=== PATIENT | male | born 1950 | race Caucasian/White ===

== ENCOUNTER 2023-09-17 10:30 | Outpatient (RCR) | payer MEDICARE, SELFPAY ==
--- NOTE | 2023-09-12 16:13 | PT.OPE ---
[facility] PT [facility] Out[facility] Eval Start: 09/12/23 16:07 Freq: Status: Active Protocol: Document 09/12/23 16:07 LISAEmma (Rec: 09/12/23 16:10 REYNA [id number]) E-signed By Eris Carrillo DPT, MS Physical Therapy Outpatient Evaluation Insurance Information Recert Due Date 12/11/23 Insurance Name Medicare B,Other; See Comments Insurance Information/Comments AARP Medical Diagnosis Pain in left knee, other chronic pain; other specified postprocedural states; cervicalgia; arthrodesis status Treating Diagnosis L knee and CS pain, decreased L LE flexibility, B (L>R) LE weakness, gait dysfunction, and imbalance Subjective Subjective Pt is a 73-year-old male who presents to PT with c/o chronic L knee and B CS pain over the past 4-5 years with gradual increase in sxs. Pt had a significant L knee hyperextension injury 20+ years ago with reconstruction surgery to all 4 ligaments. Previous MRI found his L PCL did not heal and he has tricompartmental L knee OA. An orthopedic surgeon previously recommended a TKA but he hopes to put this off, especially since he is leaving in 1.5 weeks to stay with his son in [place] for the winter. Describes sxs as sharp aching pain behind his patella with occasional sxs in his medial knee. Chronic hx of CS pain with previous C6-7 and C5-6 fusions along with episodic tension and cluster HAs. Denies radicular sxs but experiences high levels of B CS tension with HAs. Stays active everyday walking around his property performing house and yardwork with elevated knee pain after walking >3-4 minutes. 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 PMH includes L knee, LS and CS OA, polio at 2 y.o. with permanent weakness in his R calf. AGGR factors: walking , standing, stair climbing ( down>up), driving, turning neck, carrying objects, squatting, kneeling. ALLEV factors: ibuprofen, warm shower. Pt hopes to learn exercises to decreased L knee and CS pain before he leaves for the winter. Pain Comments 04/21 Current Work Status Integration Solution Architect,Residential Disability Preferred Name Dominick Precautions Therapy Limitations/Systems Review Not Limited Objective Functional Test Performed & Score LEFS: 16 Assessment Assessment/Impression Objectively pt displays decreased B (L>R) LE and CS ROM and flexibility, B LE and UE weakness, gait dysfunction, and imbalance. Significant L quad and glute weakness, L hamstring and quad tightness, combined with SLS impairments appear to be contributing to L knee sxs. B CS musculature is very tight, especially B UT and SO. Pt responded well to recumbent biking, stretching, and UE and LE strengthening exercises with fatigue and decreased L knee and neck pain following today?s session. He will benefit from continued skilled therapy to address these limitations. Primary Functional Limitations Due to chronic nature of sxs, and L knee and CS degenerative changes Plan of Care Rehabilitation Potential Good Rehabilitation Potential Comments Walking, standing, stair climbing (down>up), driving, turning neck, carrying objects , squatting, kneeling Physical Therapy Goals Short-term goals to be completed in 4 weeks: 1.Pt will display improved L LE strength as evidenced by performing >10 SLR of good quality to improve quality of gait 2. Pt will report improved quality of sleep waking <2x per night due to L knee and CS pain. Long-term goals to be completed in 10 weeks: 1.Pt will be independent and compliant with her HEP for senior care sx management 2.Pt will display improved B hip flex, ABD and ext strength of >/= 4/5 to improve tolerance to walking and daily activities. 3. Pt will display improved B CS rot AROM >65 deg to improve safety with driving. 4.Pt will report >50% improvement in LEFS questionnaire to significantly improve baldomero to daily activities. 5. Pt will be able to walk >15 minutes with no elevation in L knee pain to improve cardiovascular health and tolerance to work activities. Coordination/Communication With Referral Source Treatment Plan/Direct Interventions Joint Mobilization,Manual Therapy,Neuromuscular Re-ed, Therapeutic Exercises Frequency/Duration 1x per week for 6-10 visits Patient Will Be Discharged From Therapy Completion of LTG(s),Skills Plateau,Independent w/HEP, Independently Progressing Evaluation Billing Untimed Code Treatment Minutes 26 Complexity Moderate Certification Information Initial Certification Date 09/12/23 Ending Certification Date 12/11/23 Provider Signature Shows Agreement With POC & Medical Necessity Physician Signature & Date Requested Please Sign/Date Here Physician Comment/Change : Physician NPI Number #
== END 2023-11-26 10:58 | disposition home or self-care (01) ==
PROVIDERS: PCP Family Medicine; Visit Provider Family Medicine
DX: G89.29 Other chronic pain (principal); M25.562 Pain in left knee; M54.2 Cervicalgia; Z98.890 Other specified postprocedural states; Z98.1 Arthrodesis status; R53.1 Weakness; R26.9 Unspecified abnormalities of gait and mobility; R26.81 Unsteadiness on feet; Z51.89 Encounter for other specified aftercare
CPT/HCPCS: 97110; 97162

== ENCOUNTER 2024-03-16 07:48 | Outpatient (CLI) | payer MEDICARE, SELFPAY ==
--- OUTSIDE RECORDS SUMMARY | 2024-03-16 07:51 | XMS_ITS | Clinical Summary ---
Author Organization [facility] Address [address] [place] [address] Care Team Providers Care Baseball Pitcher Name Role Phone Judy Benoit MD Primary Care Provider Un available Allergies Active Allergy Reactions Criticality Noted Date Comments Codeine Sulfate Itching 03/02/2012 Morphine Hcl 03/02/2012 Medications Medication Sig Dispensed Refills Start Date End Date Status oxyCODONE (OXYCONTIN) 20 MG 12 hr tablet Take 20 mg by mouth. 2 in the AM 1 in the afternoon and 2 before bed Active gabapentin (NEURONTIN) 300 MG capsule Take 300 mg by mouth 3 times daily. Active naproxen (NAPROSYN) 375 MG tablet Take 375 mg by mouth 2 times daily (with meals). Active tiZANidine (ZANAFLEX) 4 MG tablet Take 4 mg by mouth 3 times daily. Active lidocaine (LIDODERM) 5 % patch Place 1 patch onto the skin every 24 hours. Active Active Problems Problem Noted Date Diagnosed Date Knee pain 04/22/2012 Resolved Problems Problem Noted Date Diagnosed Date Resolved Date Left knee pain 01/19/2019 02/24/2019 Chronic pain of left knee 10/21/2016 Left knee pain, unspecified chronicity 10/21/2016 04/08/2017 Left knee pain 01/01/2016 02/12/2016 Tear of PCL (posterior cruci ate ligament) of knee 10/12/2008 12/07/2008 Social History Tobacco Use Types Packs/Day Years Used Date Smoking Tobacco: Every Day Cigarettes Smokeless Tobacco: Never Sex and Gender Information Value Date Recorded Sex Assigned at Not on file Gender Identity Not on file Sexual Orientation Not on file Last Filed Vital Signs Vital Sign Reading Time Taken Comments Blood Pressure 128/80 11/22/2012 2:46 PM MENTAL HEALTH NURSE Pulse - - Temperature 36.4 ??C (97.5 ??F) 11/22/2012 2:46 PM CS T Respiratory Rate 16 11/22/2012 4:03 PM MENTAL HEALTH NURSE Oxygen Saturation 99% 11/22/2012 4:03 PM MENTAL HEALTH NURSE Inhaled Oxygen Concentration - - Weight 67.1 kg (148 lb) 04/06/2012 1:34 PM CDT Height 182.9 cm (6') 04/06/2012 1:34 PM CDT Body Mass Index 20.07 04/06/2012 1:34 PM CDT Plan of Treatment Not on file Care Teams Baseball Pitcher Relationship Specialty Start Date End Date Judy Benoit MD PCP - General Family Practice 03/31/12
--- OUTSIDE RECORDS SUMMARY | 2024-03-16 07:51 | XMS_ITS | Clinical Summary ---
Author Organization [facility] Address [place], [place] [address] Care Team Providers Care Hot Room Attendant Name Role Phone Katiejuan m Newtonmaribell Primary Care Provider Unavail able Allergies Active Allergy Reactions Criticality Noted Date Comments Codeine Nausea And Vomiting 11/06/2005 Morphine 11/06/2005 Medications Medication Sig Dispensed Refills Start Date End Date Status ASPIRIN 325 MG TAB, DELAYED RELEASE daily 0 11/25/2005 Active LIDOCAINE 5 % (700 MG/PATCH) ADHESIVE PATCH apply 1 patch daily on 12 hours, off 12 hours 2 0 12/21/2007 Active GABAPENTIN 300 MG CAP 2 caps po TID 8 0 12/21/2007 Active HYDROCODONE-ACETAMINOP HEN 5 MG-500 MG TAB 1 tab po q6h prn pain 5 0 12/21/2007 Active NAPROXEN 375 MG TAB take 1 tablet (375 mg) by oral route 2 times per day with food 3 0 12/21/2007 Active ZANAFLEX 4 MG TABIndications:Other general symptoms(780.99) take 1 tablet (4mg) by oral route every 8 hours as needed not to exceed 3 doses in 24 hours 90 3 12/30/2007 Active OXYCONTIN 40 MG 12 HR TAB take 1 tab every eight hours 93 0 03/08/2008 Active NORCO 10 MG-325 MG TAB 1 po qid prn 120 0 03/08/2008 Active NAPROXEN 375 MG TAB take 1 tablet (375 mg) by oral route 2 times per day with food 60 2 03/08/2008 Active NEURONTIN 300 MG CAP 2 caps tid 180 3 03/08/2008 Active LIDODERM 5 % (700 MG/PATCH) ADHESIVE PATCH apply 1 patch daily, 12 hrs on , 12 hrs off 30 3 03/08/2008 Active PRILOSEC 20 MG CAP take 1 capsule (20mg) by oral route once daily before a meal 30 3 03/08/2008 Active TIZANIDINE 4 MG TAB take 1 tablet (4 mg) by oral route every 8 hours as needed not to exceed 3 doses in 24 hours 90 2 03/08/2008 Active Active Problems Problem Noted Date Diagnosed Date Pain in joint, pelvic region and thigh 8 Pain in joint, shoulder region 03/10/2008 Cervicalgia 03/10/2008 Prepatellar bursitis 03/10/2008 Pain in joint, lower leg 03/10/2008 Pain in joint, lower leg 03/10/2008 narcotic contract 03/08/2008 Overview: 03/08/08 Upc Other general symptoms(780.99) 04/17/2005 Family History Medical History Relation Name Comments Heart Disease Mother Diabetes Sister Relation Name Status Comments Mother Sister Social History Tobacco Use Types Packs/Day Years Used Date Smoking Tobacco: Every Day Cigarettes 1 44 Alcohol Use Standard Drinks/Week Comments Yes 0 (1 standard drink = 0.6 oz pure alcohol) Pt reports heavy alcohol use in the past; currently only kylie or 1/2 glass of wine about once per month. Sex and Gender Information Value Date Recorded Sex Assigned at Not on file Gender Identity Not on file Sexual Orientation Not on file Obstetrics History Last Filed Vital Signs Vital Sign Reading Time Taken Comments Blood Pressure 102/60 08/30/2013 11:12 AM SENIOR MANAGER MMCOE Pulse 68 08/30/2013 11:12 AM SENIOR MANAGER MMCOE Temperature 36.8 ??C (98.3 ??F) 12/21/2007 12:54 PM C DT Respiratory Rate 16 08/30/2013 11:12 AM SENIOR MANAGER MMCOE Oxygen Saturation 99% 08/30/2013 11:12 AM SENIOR MANAGER MMCOE Inhaled Oxygen Concentration - - Weight 63 kg (139 lb) 08/30/2013 11:12 AM SENIOR MANAGER MMCOE Height 180.3 cm (5' 11) 08/30/2013 11:12 AM SENIOR MANAGER MMCOE Body Mass Index 19.39 08/30/2013 11:12 AM SENIOR MANAGER MMCOE Plan of Treatment Upcoming Encounters Date Type Department Care Team (Late st Contact Info) Description 03/16/2024 9:00 AM CDT Ancillary Procedure [facility] [address] [place] [address] Health Maintenance Due Date Last Done Comments Tdap 1962 Depression screening for age 12+ 1963 BMI (ht and wt on same day) for age 18+ 1969 Hepatitis C screening for age 18-79 1969 Tetanus booster 1971 Colonoscopy through age 75 1996 Zoster (shingles) series for age 50+ (1 of 2) 06/12/20 01 Lipids for age 45-75 12/24/2009 12/24/2004 Pneumococcal series for age 65+ (1 of 1 - PCV) 016 COVID-19 vaccine series (1 - 2022-24 season) 3 Influenza for age 65+ 06/13/2024 Procedures Procedure Name Priority Date/Time Associated Diagnosis Comments LIPID PANEL Timed 12/24/2004 9:00 AM SENIOR MANAGER MMCOE from Last 3 Months or Most Recently Relevant to Health Maintenance Results * (ABNORMAL) LIPID PANEL (12/24/2004 9:00 AM SENIOR MANAGER MMCOE) CHOLESTEROL,TOTAL 166 110 - 199 mg/dL [facility] TRIGLYCERIDES 58 40 - 149 mg/dL [facility] HDL CHOLESTEROL 37(L) 41 - 75 mg/dL [facility] CHOL/HDL RATIO 4.49 <4.51 [facility] LDL CHOLESTEROL 117 60 - 130 mg/dL [facility] 12/24/2004 9:00 AM SENIOR MANAGER MMCOE 12/24/2004 5:30 AM SENIOR MANAGER [facility] Kindra Talbert MD CHEMISTRY [facility] [place]IP [address] [place] [id number] from Last 3 Months or Most Recently Relevant to Health Maintenance Care Teams Hot Room Attendant Relationship Specialty Start Date End Date Judy Benoit PCP - General 01/16/05
--- OUTSIDE RECORDS SUMMARY | 2024-03-16 07:51 | XMS_ITS | Referral Summary ---
Author Organization [facility] Address [address] [place] [address] Care Team Providers Care Drug Safety Associate Name Role Phone Judy Benoti MD Primary Care Provider Un available Allergies [...] Comments Blood Pressure 128/80 11/22/2012 2:46 PM ELECTRIC MOTOR ASSEMBLER Pulse - - Temperature 36.4 ??C (97.5 ??F) 11/22/2012 2:46 PM CS T Respiratory Rate 16 11/22/2012 4:03 PM ELECTRIC MOTOR ASSEMBLER Oxygen Saturation 99% 11/22/2012 4:03 PM ELECTRIC MOTOR ASSEMBLER Inhaled Oxygen Concentration - - Weight 67.1 kg (148 lb) 04/06/2012 1:34 PM CDT Height 182.9 cm (6') 04/06/2012 1:34 PM CDT Body Mass Index 20.07 04/06/2012 1:34 PM CDT Plan of Treatment Not on file Insurance Payer Benefit Plan / Group Subscriber ID Effective Dates Phone Address Type WORK COMP [facility] [employer] [id number] 1994-Pr esent [address] [address] [place] [address] MEDICARE MEDICARE [id number] 2003-Pres ent ATTN CLAIMS [address] [place] [address] Medicare Care Teams Drug Safety Associate Relationship Specialty Start Date End Date Judy Benoit MD PCP - General Family Practice 03/31/12
[2024-03-16] MEDS: SODIUM CHLORIDE 0.9 % (FLUSH) 10 ML SYRINGE IVF (09:55)
[2024-03-16] MEDS: REGADENOSON 0.4 MG/5 ML SYRINGE IVP (09:55)
[2024-03-16 10:27] VITALS: BP 111/72; PULSE 73
--- NOTE | 2024-03-16 11:35 | W.PM.STED ---
Stress Test Note Date Date of test: 03/16/24 Providers Primary care provider: Mc Benoit Stress test physician: Lázaro Stone Stress Test Note Stress test ordered: Lexiscan Indication for test: Shortness of breath Stress test medicine: Lexiscan Results discussion: Patient is a very nice 73-year-old gentleman, who presents for the above test, after discussion the risks benefits and side effects he would like to proceed pretest EKG shows normal sinus rhythm, with no acute changes. His ventricular rate is 57 his blood pressure is 107/67. Standard infusion of Lexiscan is done over 5 minute. Following protocol. His maximum heart rate was 88, maximum blood pressure was 125/71. He was asymptomatic during the infusion. Objective shows no evidence of any ST wave changes, there is no dysrhythmias. Impression: Negative electrographic portion of Lexiscan. Follow up suggested: Await nuclear images these will be read by nuclear Medicine, clinical correlation with these will be needed. Patient left this testing facility in excellent condition at baseline
== END 2024-03-16 07:49 | disposition home or self-care (01) ==
LOC: STRESS 07:49
PROVIDERS: PCP Family Medicine; Visit Provider Family Medicine
DX: R06.09 Other forms of dyspnea (principal)
CPT/HCPCS: 78452; 93016; 93017; A9500; J2785

== ENCOUNTER 2024-03-19 07:29 | Outpatient (CLI) | payer MEDICARE, SELFPAY ==
--- OUTSIDE RECORDS SUMMARY | 2024-03-19 07:31 | XMS_ITS | Referral Summary ---
Author Organization [facility] Address [address] [place] [address] Care Team Providers Care Welding Estimator Name Role Phone Judy Benoit MD Primary [...] Comments Blood Pressure 128/80 11/22/2012 2:46 PM MANAGEMENT TRAINEE PROGRAM STORES Pulse - - Temperature 36.4 ??C (97.5 ??F) 11/22/2012 2:46 PM CS T Respiratory Rate 16 11/22/2012 4:03 PM MANAGEMENT TRAINEE PROGRAM STORES Oxygen Saturation 99% 11/22/2012 4:03 PM MANAGEMENT TRAINEE PROGRAM STORES Inhaled Oxygen Concentration - - Weight 67.1 kg (148 lb) 04/06/2012 1:34 PM CDT Height 182.9 cm (6') 04/06/2012 1:34 PM CDT Body Mass Index 20.07 04/06/2012 1:34 PM CDT Plan of Treatment Not on file Care Teams Welding Estimator Relationship Specialty Start Date End Date Judy Benoit MD PCP - General Family Practice 03/31/12
--- OUTSIDE RECORDS SUMMARY | 2024-03-19 07:31 | XMS_ITS | Clinical Summary ---
Author Organization [facility] Address [address] [place] [id number] Care Team Providers Care Still Cleaner Tube Name Role Phone Judy Benoit MD Primary [...] Comments Blood Pressure 128/80 11/22/2012 2:46 PM FINANCIAL REPORTING SPECIALIST Pulse - - Temperature 36.4 ??C (97.5 ??F) 11/22/2012 2:46 PM CS T Respiratory Rate 16 11/22/2012 4:03 PM FINANCIAL REPORTING SPECIALIST Oxygen Saturation 99% 11/22/2012 4:03 PM FINANCIAL REPORTING SPECIALIST Inhaled Oxygen Concentration - - Weight 67.1 kg (148 lb) 04/06/2012 1:34 PM CDT Height 182.9 cm (6') 04/06/2012 1:34 PM CDT Body Mass Index 20.07 04/06/2012 1:34 PM CDT Plan of Treatment Not on file Care Teams Still Cleaner Tube Relationship Specialty Start Date End Date Judy Benoit MD PCP - General Family Practice 03/31/12
--- OUTSIDE RECORDS SUMMARY | 2024-03-19 07:31 | XMS_ITS | Clinical Summary ---
Author Organization [facility] Address [place], [place] [address] Care Team Providers Care Wreath Maker Name Role Phone Katiejuan m Newtonmaribell Primary [...] Overview: 03/08/08 Upc Other general symptoms(780.99) 04/17/2005 Encounters Date Type Department Care Team Description 03/16/2024 9:00 AM CDT Ancillary Procedure [facility] [address] [address] Arrived from Last 3 Months Family History Medical History Relation Name Comments [...] Comments Blood Pressure 102/60 08/30/2013 11:12 AM ASSISTANT CHILD CARE TEACHER Pulse 68 08/30/2013 11:12 AM ASSISTANT CHILD CARE TEACHER Temperature 36.8 ??C (98.3 ??F) 12/21/2007 12:54 PM C DT Respiratory Rate 16 08/30/2013 11:12 AM ASSISTANT CHILD CARE TEACHER Oxygen Saturation 99% 08/30/2013 11:12 AM ASSISTANT CHILD CARE TEACHER Inhaled Oxygen Concentration - - Weight 63 kg (139 lb) 08/30/2013 11:12 AM ASSISTANT CHILD CARE TEACHER Height 180.3 cm (5' 11) 08/30/2013 11:12 AM ASSISTANT CHILD CARE TEACHER Body Mass Index 19.39 08/30/2013 11:12 AM ASSISTANT CHILD CARE TEACHER Plan of Treatment Health Maintenance Due Date Last Done Comments [...] 1 - PCV) 016 COVID-19 vaccine series ( - season) 3 Influenza for age 65+ 06/13/2024 Procedures Procedure Name Priority Date/Time Associated Diagnosis Comments NM CARDIAC MPI STRESS TEST Routine 03/16/2024 2:08 PM CDT Other forms of dyspnea LIPID PANEL Timed 12/24/2004 9:00 AM ASSISTANT CHILD CARE TEACHER from Last 3 Months or Most Recently Relevant to Health Maintenance Results * NM CARDIAC MPI STRESS TEST (03/16/2024 2:08 PM CDT) Anatomical Region Laterality Modality HEART Ultrasound 03/16/2024 9:03 AM CDT Narrative 03/16/2024 4:21 PM CDT ? Toll -free: [phone] ?[employer] ?MYOCARDIAL PERFUSION IMAGING REPORT REST/STRESS SINGLE ISOTOPE GATED SPECT IMAGING. Patient Name: ?? JAYA Berny FIELD ?Gender: ? M ? Height: ? 71 in Accession #: ?[id number] ?Weight: ? 130 lb Study Date: ? 03/16/2024 9:03:36 AM ?BSA: ?1.76 m? ? ? : ?1950 73 years ? BMI: ?18.13 kg/m? ? ? Ord. Prov.: ? MELIDA Odom ? Monitoring Prov.: Lázaro Stone [facility] Clinical History: ? Dyspnea. No known coronary artery disease. Cardiac Risk Factors: Tobacco use. Other Symptomatology: COPD. Cardiac History: ?Angiogram. Beta breanna/calcium channel breanna/nitrate taken today: No. Caffeine/methylxanthine taken within 12 hrs: ?No. Chest pain/discomfort at baseline: ?No. IMPRESSION 1. Myocardial perfusion was normal. 2. Left ventricular cavity size was normal (resting EDV 84 ml). 3. Overall left ventricular systolic function was normal without wall motion abnormalities. The post stress LVEF was calculated to be 74 %. 4. See separate report for EKG intrepretation. 5. There were no prior studies available for comparison. STRESS MPI PROCEDURE The patient was studied utilizing a same day rest/stress protocol. Myocardial perfusion imaging was performed at rest, 24 minutes following the intravenous injection of 8.37 mCi of 99mTc sestamibi. 30 seconds after the 15 second IV regadenoson injection, the patient was injected via IV with 32.2 mCi of 99mTc sestamibi. Gated post-stress tomographic imaging was performed 35 minutes after stress. After image acquisition was completed, data was reconstructed in short, horizontal long and vertical long axis views and tomographic slices were generated. - Pharmacologic stress testing was performed with an IV regadenoson dose of 0.4 mg. - No low level exercise was performed. - Resting heart rate was 55 bpm, peak heart rate was 88 bpm. - Resting blood pressure was 107/67 mmHg; peak blood pressure was 125/71 mmHg. - Patient did not develop significant symptoms. FINDINGS Imaging - The overall quality of the study was excellent with mild soft tissue attenuation on rest and stress studies. Computerized motion correction was not applied to rest and stress studies. - SPECT perfusion images were normal without evidence of ischemia or infarction. - Computer processed gated imaging revealed normal left ventricular size with a calculated LVEF of 74 %. (Lab normals: LVEF >50%, LV Size <150 ml). - There was normal post-stress myocardial thickening and wall motion. - No right ventricular abnormalities were identified. - There was no evidence of abnormal lung or extracardiac activity. - Risk/extent of ischemia per ACC Noninvasive Risk Stratification Guideline: LOW RISK. This study was interpreted and electronically signed by Jaime Luo MD on 03/16/2024 3:13:28 PM. ??Final (Updated) ?? Procedure Note Jaime Luo MD - 03/16/2024 Toll -free: [phone] [employer] MYOCARDIAL PERFUSION IMAGING REPORT REST/STRESS SINGLE ISOTOPE GATED SPECT IMAGING. Patient Name: JAYA FIELD Gender: Emma Height: 71 in Weight: 130 lb Study Date: 03/16/2024 9:03:36 AM BSA: 1.76 m? ? ? : 1950 73 years BMI: 18.13kg/m? ? ? Ord. Prov.: MELIDA Odom Monitoring Prov.: Lázaro Stone [facility] Clinical History: Dyspnea. No known coronary artery disease. Cardiac Risk Factors: Tobacco use. Other Symptomatology: COPD. Cardiac History: Angiogram. Beta breanna/calcium channel breanna/nitrate taken today: No. Caffeine/methylxanthine taken within 12 hrs: No. Chest pain/discomfort at baseline: No. IMPRESSION 1. Myocardial perfusion was normal. 2. Left ventricular cavity size was normal (resting EDV 84 ml). 3. Overall left ventricular systolic function was normal without wallmotion abnormalities. The post stress LVEF was calculated to be 74 %. 4. See separate report for EKG intrepretation. 5. There were no prior studies available for comparison. STRESS MPI PROCEDURE The patient was studied utilizing a same day rest/stress protocol.Myocardial perfusion imaging was performed at rest, 24 minutes followingthe intravenous injection of 8.37 mCi of 99mTc sestamibi. 30 seconds afterthe 15 second IV regadenoson injection, the patient was injected via IVwith 32.2 mCi of 99mTc sestamibi. Gated post-stress tomographic imagingwas performed 35 minutes after stress. After image acquisition wascompleted, data was reconstructed in short, horizontal long and verticallong axis views and tomographic slices were generated. - Pharmacologic stress testing was performed with an IV regadenoson doseof 0.4 mg. - No low level exercise was performed. - Resting heart rate was 55 bpm, peak heart rate was 88 bpm. - Resting blood pressure was 107/67 mmHg; peak blood pressure was 125/71mmHg. - Patient did not develop significant symptoms. FINDINGS Imaging - The overall quality of the study was excellent with mild soft tissue attenuation on rest and stress studies. Computerized motion correction wasnot applied to rest and stress studies. - SPECT perfusion images were normal without evidence of ischemia orinfarction. - Computer processed gated imaging revealed normal left ventricular sizewith a calculated LVEF of 74 %. (Lab normals: LVEF >50%, LV Size <150 ml). - There was normal post-stress myocardial thickening and wall motion. - No right ventricular abnormalities were identified. - There was no evidence of abnormal lung or extracardiac activity. - Risk/extent of ischemia per ACC Noninvasive Risk StratificationGuideline: LOW RISK. This study was interpreted and electronically signed by Mary Kay Natarajan 03/16/2024 3:13:28 PM. Final (Updated) Mc Benoit MD NM * (ABNORMAL) LIPID PANEL (12/24/2004 9:00 AM ASSISTANT CHILD CARE TEACHER) CHOLESTEROL,TOTAL 166 110 - 199 mg/dL [facility] TRIGLYCERIDES 58 40 - 149 mg/dL [facility] HDL CHOLESTEROL 37(L) 41 - 75 mg/dL [facility] CHOL/HDL RATIO 4.49 <4.51 [facility] LDL CHOLESTEROL 117 60 - 130 mg/dL [facility] 12/24/2004 9:00 AM ASSISTANT CHILD CARE TEACHER 12/24/2004 5:30 AM ASSISTANT CHILD CARE TEACHER Kindra Talbert MD CHEMISTRY [facility] INTERNAL ZIP [address] [address] from Last 3 Months or Most Recently Relevant to Health Maintenance Care Teams Wreath Maker Relationship Specialty Start Date End Date Judy Benoit PCP - General 01/16/05
--- NOTE | 2024-03-19 08:54 | W.ANESCHARGE ---
Anesthesia Charges Start Date/Time Anesthesia Start Date: 03/19/24 Anesthesia Start Time: 08:31 Stop Date/Time Anesthesia Stop Date: 03/19/24 Anesthesia Stop Time: 08:51
--- NOTE | 2024-03-19 10:23 | W.ANESCHARGE ---
Anesthesia Charges Start Date/Time Anesthesia Start Date: 03/19/24 Anesthesia Start Time: 08:31 Stop Date/Time Anesthesia Stop Date: 03/19/24 Anesthesia Stop Time: 08:51 Summary Extremes of Age - Over 70 or under 1: MDA
== END 2024-03-19 07:30 | disposition home or self-care (01) ==
LOC: OP CLINIC 07:29
PROVIDERS: PCP Family Medicine; Visit Provider Internal Medicine
DX: R13.10 Dysphagia, unspecified (principal); K22.2 Esophageal obstruction; K22.89 Other specified disease of esophagus
CPT/HCPCS: 00731; 43239; 88305; 99100; J2704